=== PATIENT | male | born 1980 | race Caucasian/White ===

== ENCOUNTER 2020-11-01 20:10 | Emergency (ER) | payer OTHER, MEDICAID, SELFPAY ==
--- NOTE | 2020-11-01 20:14 | ED.EXTPRO ---
HPI - Extremity Problem General Chief complaint: Extremity Problem,Nontraumatic Stated complaint: states back of left leg blown out, thinks clots Time Seen by Provider: 11/01/20 20:14 Source: patient Mode of arrival: Ambulatory Limitations: no limitations History of Present Illness HPI Narrative: 40-year-old male former smoker with history of lower extremity varicosities presents with a chief complaint of pain and swelling behind his left knee since caring some heavy objects recently. He denies any specific injury. He states the pain is worse with motion and ambulation and improves with rest. He denies any fever or chills. She denies any chest pain or shortness of breath. He denies any history of clot, pulmonary embolism, cancer or recent travel. MD Complaint: extremity pain and extremity swelling Onset (ago): day(s) Pain Consistency: constant Location: left Quality: burning and aching Radiation: none Relieving factors: rest Exacerbating factors: walking and palpation Associated symptoms: denies other symptoms Related Data Home Medications Medication Instructions Recorded Confirmed aspirin [Adult Low Dose Aspirin] 81 mg PO DAILY PRN 11/01/20 11/01/20 Allergies Allergy/AdvReac Type Severity Reaction Status Date / Time No Known Drug Allergies Allergy Verified 11/01/20 20:32 Review of Systems Constitutional Constitutional: Denies chills, Denies fatigue, Denies fever(s), Denies frequent falls, Denies lethargy and Denies weakness Eyes Eyes: Denies change in vision, Denies eye discharge, Denies irritation and Denies loss of vision ENT Ears, Nose, Mouth, and Throat: Denies change in voice, Denies dizziness, Denies neck pain, Denies sore throat and Denies throat swelling Cardiovascular Cardiovascular: Denies chest pain, Denies irregular heart rhythm, Denies lightheadedness, Denies palpitations, Denies dyspnea, Denies dyspnea on exertion and Denies orthopnea Respiratory Respiratory: Denies cough, Denies dyspnea, Denies dyspnea on exertion and Denies wheezing Gastrointestinal Gastrointestinal: Denies abdominal pain, Denies change in bowel habits, Denies diarrhea, Denies nausea and Denies vomiting Musculoskeletal Musculoskeletal: Reports arthralgias, Reports joint swelling, Denies neck pain and Denies numbness Integumentary/Breasts Skin/Breast: Denies pruritus, Denies erythema, Denies rash and Denies wounds Neurologic Neurologic: Denies behavioral changes, Denies confusion, Denies dizziness, Denies frequent falls, Denies loss of vision, Denies numbness and Denies weakness Psychiatric Psychiatric: Denies anxiety, Denies behavioral changes, Denies confusion, Denies depression, Denies homicidal ideation and Denies suicidal ideation Endocrine Endocrine: Denies fatigue, Denies flushing and Denies palpitations Hematologic/Lymphatic Hematologic/Lymphatic: Denies easy bruising Allergic/Immunologic Allergic/Immunologic: Denies urticaria, Denies throat swelling and Denies wheezing Patient History Social History Smoking Status: Former smoker Smoking Status: Former smoker alcohol intake frequency: 0-2 drinks per day Substance Use Type: does not use Exam Narrative Exam Narrative: GEN: AOx3 and in mild distress EYES: Pupils are equal, round, and reactive to light and accommodation. Extraoccular muscles are intact bilaterally. There is no subconjunctival hemorrhage or exudate. CHEST: Lungs are clear to auscultation bilaterally and free of wheezes, rales, or rhonchi. Heart rate is regular rhythm, there are no murmurs, clicks, rubs, or gallops. There is no chest wall tenderness. ABD: Abdomen is soft and nontender. There is no guarding or rebound. Bowel sounds are normal in all 4 quadrants. There is no mass or organomegaly. EXT: Full, but slightly painful range of motion of the left knee. There is no effusion, redness or warmth and no ligamentous instability. He does have some pain palpation in the popliteal fossa with multiple varicosities on the medial leg, there is no overlying erythema, warmth or induration of the vessels to suggest thrombus. SKIN: Warm, pink, and dry. No erythema or rash Initial Vital Signs Initial Vital Signs: Vital Signs Temperature 98.0 F 11/01/20 20:27 Pulse Rate 94 H 11/01/20 20:27 Respiratory Rate 18 11/01/20 20:27 Blood Pressure 162/75 H 11/01/20 20:27 Pulse Oximetry 99 11/01/20 20:27 Course Orders Ordered: ED Orders 11/01/20 20:21 periph venous low extrem lt Stat Vital Signs Vital signs: Vital Signs - 8 hr 11/01/20 20:27 11/01/20 21:58 Temperature 98.0 F Pulse Rate 94 H 90 Respiratory Rate 18 Blood Pressure 162/75 H 137/86 Pulse Oximetry 99 98 MDM - Extremity (Nontraumatic) Imaging Data US - DVT: Radiologist's Impression: Geronimo Bob 40 M [address] [id number] ReportSigned Patient: Geronimo Bob DMR#: [id number]: 1980Acct:[id number]/Sex: 40 / MDate of Service: 11/01/20Loc: EDAccession Number: [id number] Procedure: US periph venous low extrem lt Ordering Provider: Maciej Scnheider D.O. PROCEDURE: US PERIPH VENOUS LOW EXTREM LT INDICATIONS: EDEMA TECHNIQUE: Real-time imaging, as well as color and pulse Doppler interrogation, were performed of the lower extremity deep veins from the inguinal ligament to the popliteal fossa. COMPARISON: None. FINDINGS: The common femoral, femoral and popliteal veins are normally compressible, and free of intraluminal thrombus. Color and pulse Doppler demonstrate normal phasic intraluminal flow. There is normal augmentation response to distal compression maneuver. Barrera's cyst measuring 5.4 x 1.7 x 2.8 cm. Prominent scattered varicosities noted. IMPRESSION: No evidence of deep venous thrombosis. Barrera's cyst as above Dictated by: Reji Sandoval M.D. on 11/01/2020 at 21:53 Approved by: Reji Sandoval M.D. on 11/01/2020 at 21:54 Discharge Plan Departure Patient Disposition: Home Clinical Impression: Barrera's cyst Qualifiers: Laterality: left Qualified Code(s): M71.22 - Synovial cyst of popliteal space [Barrera], left knee Instructions: DI for Barrera Cyst Activity Restrictions/Additional Instructions: *You have been diagnosed with [abrrera cyst of the left knee, no evidence of clotting] *What to do: *Take medications as directed *Follow up with your primary care provider in 2-3 days, call for an appointment. Let them know you were seen in the Emergency Department and that we ask that you be seen in follow up *Return to ER if you should have any new, worsening or concerning symptoms Prescriptions: No Action Adult Low Dose Aspirin 81 mg Tablet 81 mg PO DAILY PRN (Reason: Pain (Scale Score 1-3)) RF: 0 Referrals: Bryce Acuña MD [Physician] -
--- NOTE | 2020-11-01 20:21 | DI.US.S_ITS ---
PROCEDURE: US PERIPH VENOUS LOW EXTREM LT INDICATIONS: EDEMA TECHNIQUE: Real-time imaging, as well as color and pulse Doppler interrogation, were performed of the lower extremity deep veins from the inguinal ligament to the popliteal fossa. COMPARISON: None. FINDINGS: The common femoral, femoral and popliteal veins are normally compressible, and free of intraluminal thrombus. Color and pulse Doppler demonstrate normal phasic intraluminal flow. There is normal augmentation response to distal compression maneuver. Barrera's cyst measuring 5.4 x 1.7 x 2.8 cm. Prominent scattered varicosities noted. IMPRESSION: No evidence of deep venous thrombosis. Barrera's cyst as above Dictated by: Reji Sandoval M.D. on 11/01/2020 at 21:53 Approved by: Reji Sandoval M.D. on 11/01/2020 at 21:54
[2020-11-01 20:27] VITALS: BP 162/75; PULSE 94; RESP 18; TEMP 36.7; O2SAT 99; BMI 41.8
[2020-11-01 21:58] VITALS: BP 137/86; PULSE 90; O2SAT 98
== END 2020-11-01 22:02 | disposition home or self-care (01) ==
PROVIDERS: Emergency Provider Emergency Medicine
DX: M71.22 Synovial cyst of popliteal space [Baker], left knee (principal)
CPT/HCPCS: 93971; 99283

== ENCOUNTER → 2022-10-03 08:30 | Outpatient (CLI) | payer OTHER, SELFPAY ==
[2022-10-03 20:45] LABS: Add Manual Diff / Slide Review NO; Basophils Absolute Auto 100 /uL (0-100); Basophils Percent Auto 0.7 % (0-2); Eosinophils Absolute Auto 300 /uL (0-450); Eosinophils Percent Auto 4.2 % (2-4); Hematocrit 44.2 % (41-53); Hemoglobin 14.8 g/dL (13.5-17.5); Lymphocytes Absolute Auto 2700 /uL (1100-4500); Lymphocytes Percent Auto 36.5 % (25-40); Mean Corpuscular HGB Conc 33.5 % (30-36); Mean Corpuscular Hemoglobin 28.5 PG (26-34); Mean Corpuscular Volume 85.3 fL (80-100); Monocytes Absolute Auto 600 /uL (0-900); Monocytes Percent Auto 7.8 % (3-14); Neutrophils Absolute Auto 3800 /uL (1500-7000); Neutrophils Percent Auto 50.8 % (50-75); Platelet Count 233 X10^3/uL (150-400); Red Blood Cell Count 5.18 X10^6/uL (4.5-5.9); Red Cell Distribution Width 14.1 % (11.6-14.8); White Blood Cell Count 7.4 X10^3/uL (4.5-11.0)
[2022-10-03 21:00] LABS: BUN Creatinine Ratio 22.1 (6-22); Blood Urea Nitrogen 15 mg/dL (9-20); Carbon Dioxide 25 mmol/L (22-32); Chloride 105 mmol/L (98-107); Cholesterol 216 mg/dL (140-199); Estimated Glomerular Filt Rate > 60 mL/min (>60); Glucose 102 mg/dL (70-100); HDL Cholesterol 37 mg/dL (40-60); HEMOLYSIS < 15 (0-50); LDL Cholesterol Calculated 128 mg/dL (<100); Potassium 4.6 mmol/L (3.4-5.1); Sodium 137 mmol/L (137-145); Triglycerides 257 mg/dL (35-150)
[2022-10-03 21:25] LABS: Prostate Specific Antigen Scrn 0.453 ng/mL (0.1-4.0)
[2022-10-05 02:38] LABS: Labcorp Hemoglobin (Hb) A1c 5.5 % (4.8-5.6)
== END ==
PROVIDERS: PCP Family Medicine; Visit Provider Family Medicine
DX: E66.9 Obesity, unspecified (principal); G47.33 Obstructive sleep apnea (adult) (pediatric); I10 Essential (primary) hypertension; Z12.5 Encounter for screening for malignant neoplasm of prostate
CPT/HCPCS: 80048; 80061; 83036; 85025; G0103

== ENCOUNTER → 2023-10-06 07:59 | Outpatient (CLI) | payer OTHER, SELFPAY ==
[2023-10-06 19:43] LABS: Add Manual Diff / Slide Review NO; Basophils Absolute Auto 100 /uL (0-100); Basophils Percent Auto 0.9 % (0-2); Eosinophils Absolute Auto 200 /uL (0-450); Hematocrit 43.7 % (41-53); Hemoglobin 14.6 g/dL (13.5-17.5); Lymphocytes Absolute Auto 2100 /uL (1100-4500); Lymphocytes Percent Auto 35.1 % (25-40); Mean Corpuscular HGB Conc 33.3 % (30-36); Mean Corpuscular Hemoglobin 28.5 PG (26-34); Mean Corpuscular Volume 85.4 fL (80-100); Monocytes Absolute Auto 500 /uL (0-900); Monocytes Percent Auto 7.7 % (3-14); Neutrophils Absolute Auto 3100 /uL (1500-7000); Neutrophils Percent Auto 52.3 % (50-75); Platelet Count 214 X10^3/uL (150-400); Red Blood Cell Count 5.11 X10^6/uL (4.5-5.9); Red Cell Distribution Width 14.3 % (11.6-14.8)
[2023-10-06 19:51] LABS: Blood Urea Nitrogen 18 mg/dL (9-20); Calcium 9.6 mg/dL (8.4-10.2); Carbon Dioxide 21 mmol/L (22-32); Chloride 110 mmol/L (98-107); Cholesterol 227 mg/dL (140-199); Estimated Glomerular Filt Rate > 60 mL/min (>60); Glucose 108 mg/dL (70-100); HDL Cholesterol 39 mg/dL (40-60); HEMOLYSIS < 15 (0-50); LDL Cholesterol Calculated 144 mg/dL (<100); Potassium 4.6 mmol/L (3.4-5.1); Sodium 139 mmol/L (137-145); Triglycerides 221 mg/dL (35-150)
[2023-10-06 20:20] LABS: Prostate Specific Antigen Scrn 0.373 ng/mL (0.1-4.0)
== END ==
PROVIDERS: PCP Family Medicine; Visit Provider Family Medicine
DX: Z12.5 Encounter for screening for malignant neoplasm of prostate (principal); R73.03 Prediabetes; E78.2 Mixed hyperlipidemia; I10 Essential (primary) hypertension
CPT/HCPCS: 80048; 80061; 85025; G0103

== ENCOUNTER → 2024-09-02 10:07 | Outpatient (CLI) | payer OTHER, SELFPAY ==
[2024-09-02 20:17] LABS: Add Manual Diff / Slide Review NO; Basophils Absolute Auto 0 /uL (0-100); Basophils Percent Auto 0.5 % (0-2); Eosinophils Absolute Auto 200 /uL (0-450); Eosinophils Percent Auto 4.4 % (2-4); Hematocrit 42.6 % (41-53); Hemoglobin 14.3 g/dL (13.5-17.5); Lymphocytes Absolute Auto 1900 /uL (1100-4500); Lymphocytes Percent Auto 33.8 % (25-40); Mean Corpuscular HGB Conc 33.5 % (30-36); Mean Corpuscular Hemoglobin 28.4 PG (26-34); Mean Corpuscular Volume 84.5 fL (80-100); Monocytes Absolute Auto 300 /uL (0-900); Monocytes Percent Auto 6.2 % (3-14); Neutrophils Absolute Auto 3000 /uL (1500-7000); Neutrophils Percent Auto 55.1 % (50-75); Platelet Count 201 X10^3/uL (150-400); Red Blood Cell Count 5.04 X10^6/uL (4.5-5.9); Red Cell Distribution Width 13.6 % (11.6-14.8); White Blood Cell Count 5.5 X10^3/uL (4.5-11.0)
[2024-09-02 20:28] LABS: BUN Creatinine Ratio 27.4 (6-22); Blood Urea Nitrogen 17 mg/dL (9-20); Calcium 9.2 mg/dL (8.4-10.2); Carbon Dioxide 27 mmol/L (22-32); Chloride 105 mmol/L (98-107); Cholesterol 197 mg/dL (140-199); Estimated Glomerular Filt Rate > 60 mL/min (>60); Glucose 87 mg/dL (70-100); HDL Cholesterol 34 mg/dL (40-60); HEMOLYSIS 17 (0-50); LDL Cholesterol Calculated 121 mg/dL (<100); Potassium 4.5 mmol/L (3.4-5.1); Sodium 139 mmol/L (137-145); Triglycerides 210 mg/dL (35-150)
[2024-09-02 20:45] LABS: Hemoglobin A1C% w Est Avg Glu 4.9 % (4.0-6.0)
== END ==
PROVIDERS: PCP Family Medicine; Visit Provider Family Medicine
DX: E78.2 Mixed hyperlipidemia (principal); I10 Essential (primary) hypertension; R73.03 Prediabetes; R63.4 Abnormal weight loss; R53.1 Weakness
CPT/HCPCS: 80048; 80061; 83036; 84402; 84403; 85025

== ENCOUNTER → 2025-03-21 10:41 | Outpatient (CLI) | payer OTHER, SELFPAY ==
--- NOTE | 2025-03-21 10:42 | DI.US.S_ITS ---
PROCEDURE: US PERIPH VENOUS LOW EXTREM BI INDICATIONS: pain, increasing discomfort L>R leg TECHNIQUE: Real-time imaging, as well as color and pulse Doppler interrogation, were performed of the deep veins of both legs from the inguinal ligament to the popliteal fossa, with documentation of the visualized calf veins. COMPARISON: None. FINDINGS: Right: The common femoral, femoral, popliteal, and the visualized calf veins are normally compressible, and free of intraluminal thrombus. Color and pulse Doppler demonstrate normal phasic intravascular flow. There is normal augmentation response to distal compression maneuver. Left: The common femoral, femoral, popliteal, and the visualized calf veins are normally compressible, and free of intraluminal thrombus. Color and pulse Doppler demonstrate normal phasic intravascular flow. There is normal augmentation response to distal compression maneuver. IMPRESSION: No findings of deep venous thrombosis in either lower extremity. Dictated by: Sudarshan Miller M.D. on 03/21/2025 at 14:54 Approved by: Sudarshan Miller M.D. on 03/21/2025 at 14:54
== END ==
LOC: US 10:42
PROVIDERS: PCP Family Medicine; Referring Provider Physician Assistant Medical; Visit Provider Physician Assistant Medical
DX: S20.222A Contusion of left back wall of thorax, initial encounter (principal); S80.10XA Contusion of unspecified lower leg, initial encounter; M25.551 Pain in right hip
CPT/HCPCS: 93970

== ENCOUNTER → 2025-06-09 11:50 | Outpatient (CLI) | payer OTHER, SELFPAY ==
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
== END ==
LOC: US 11:50
PROVIDERS: PCP Family Medicine; Referring Provider Physician Assistant Medical; Visit Provider Physician Assistant Medical
DX: S80.10XA Contusion of unspecified lower leg, initial encounter (principal)
CPT/HCPCS: 76882